=== PATIENT | male | born 1965 | race Caucasian/White ===

== ENCOUNTER 2017-06-22 10:17 | Emergency (ER) | payer MEDICARE ==
--- NOTE | 2017-06-22 10:30 | Emergency Department Record ---
History of Present Illness - General Chief Complaint: Shortness of breath Stated Complaint: SHORTNESS OF BREATH Time Seen by Provider: 06/22/17 10:29 Source: Patient Mode of Arrival: Ambulatory Limitations: No limitations - History of Present Illness Initial Comments: The patient is here due to a 2 month hx of intermittent SOB. It comes and goes and last minutes at a time. It is not related to exertion and he denies any cough, fever, chills, or sputum production. The patient describes it as feeling like he cannot take a full breath in. He also has had very mild intermittent chest discomfort not always with the SOB. The chest discomfort only lasts seconds to a minute and also does not come on with exertion. He denies any discomfort today. The patient did got the RC today but was sent to the ER for evaluation. The patient's only cardiac risk factors is a 30 pack year hx of tobacco use and he quit 3-4 years ago. The patient also has been having mild WILKERSON' s and lightheadedness for months although that is no different today. MD Complaint: Shortness of breath Onset/Timin -: Month(s) Radiation: Neck, Other Consistency: Intermittent Improves With: Nothing Worsens With: Nothing Associated Symptoms: Other Treatments Prior to Arrival: None - Related Data Home Oxygen Therapy: No Previous Rx's Medication Instructions Recorded Amoxicillin 500 mg PO TID #21 capsule 06/22/17 Allergies Allergy/AdvReac Type Severity Reaction Status Date / Time No Known Drug Allergies Allergy Verified 06/22/17 10:27 Travel Screening - Travel/Exposure Within Last 30 Days Have you traveled within the last 30 days?: No Review of Systems Constitutional: Denies: Chills, Fever Eyes: Denies: Eye discharge ENT: Denies: Congestion Respiratory: Reports: Dyspnea. Denies: Cough, Hemoptysis, Stridor, Wheezes Cardiovascular: Denies: Arrhythmia, Dyspnea on exertion Endocrine: Denies: Fatigue Gastrointestinal: Denies: Diarrhea, Nausea Genitourinary: Denies: Dysuria Musculoskeletal: Denies: Arthralgia Past Medical History - SOCIAL HISTORY Smoking Status: Former smoker Alcohol Use: None Drug Use: None - RESPIRATORY Hx Respiratory Disorders: No - CARDIOVASCULAR Hx Cardio Disorders: No - NEURO Hx Neuro Disorders: No - GI Hx GI Disorders: No - Hx Genitourinary Disorders: No - ENDOCRINE Hx Endocrine Disorders: No - MUSCULOSKELETAL Hx Musculoskeletal Disorders: No - PSYCH Hx Psych Problems: No - HEMATOLOGY/ONCOLOGY Hx Hematology/Oncology Disorders: No Family Medical History Any Significant Family History?: No Physical Exam - General General Appearance: Alert, Oriented x3, Cooperative, No acute distress - Head Head exam: Atraumatic, Normocephalic, Normal inspection - Eye Eye exam: Normal appearance, PERRL - Neck Neck exam: Normal inspection, Full ROM. negative: Tenderness - Respiratory Respiratory exam: Normal lung sounds bilaterally. negative: Chest wall tenderness, Rales, Respiratory distress, Rhonchi, Stridor, Wheezes - Cardiovascular Cardiovascular Exam: Regular rate, Normal rhythm, Normal heart sounds - GI/Abdominal GI/Abdominal exam: Soft, Normal bowel sounds. negative: Tenderness - Extremities Extremities exam: Normal inspection, Full ROM, Normal capillary refill. negative: Tenderness Course Vital Signs 06/22/17 10:20 Temperature 98.4 F Pulse Rate 70 Respiratory 18 Rate Blood Pressure 142/89 Pulse Ox 99 - Reevaluation(s) Reevaluation #1: The patient is doing very well at this time. He denies any pain, discomfort, SOB , dyspnea, dizziness or lightheadedness. He is up walking with no difficulty. He did show me a tooth issue he has been having as well which is causing him pain. He has a large chronic hole in his L lower 3rd molar that he believes he may be getting infected. I explained to him that I am not sure what is causing his issues but would like him to see a Drilling Rig Operator tomorrow and he agreed. We will set him up with an appointment with Dr. King in the [facility] for tomorrow. 06/22/17 11:50 Medical Decision Making - Data Complexity MDM Data: Labs Ordered and/or Reviewed, X-Ray Ordered and/or Reviewed, EKG Ordered and/or Reviewed - Lab Data Result diagrams: 06/22/17 10:20 06/22/17 10:20 - EKG Data -: EKG Interpreted by Me EKG: No Acute Changes, Normal EKG - Radiology Data Radiology results: Report reviewed (CXR: COPD per Rad.) Disposition Disposition: Discharge Clinical Impression: Dyspnea Qualifiers: Dyspnea type: unspecified Qualified Code(s): R06.00 - Dyspnea, unspecified Disposition: Home, Self-Care Condition: (1) Good Instructions: Dyspnea (ED) Additional Instructions: Please see Dr. King tomorrow at 10:30 in the [facility]. Return to the ER sooner for any chest pain, any significant trouble breathing or shortness of breath. Also make an appointment with your PCP due to the chronic headaches and lightheadedness that you have been experiencing for months. Also see your Dentist for your tooth issue. Prescriptions: Amoxicillin 500 mg PO TID #21 capsule Referrals: [facility] Special[facility] [Provider Group] Forms: Patient Portal Access Time of Disposition: 11:57 Quality - Quality Measures Quality Measures: N/A - Blood Pressure Screening View Details: Yes Blood Pressure Classification: Pre-Hypertensive BP Reading Systolic Measurement: 142 Diastolic Measurement: 89 Screening for High Blood Pressure: < Pre-Hypertensive BP, F/U Documented > [ [id number]] Pre-Hypertensive Follow-up Interventions: Follow-up with rescreen every year.
[2017-06-22 10:55] LABS: BASO % 0.4 % (0-6); EOS % 1.1 % (0-6); GRAN % 51.4 % (47-80); HEMATOCRIT 43.6 % (42.0-52.0); HEMOGLOBIN 14.5 gm/dl (14.0-18.0); LYMPH % 38.7 % (16-45); MEAN CELL VOLUME 89.9 fl (81-97); MEAN CORPUSCULAR HEMOGLOBIN 29.9 pg (27-33); MEAN CORPUSCULAR HGB CONC 33.3 g/dl (32-36); MEAN PLATELET VOLUME 10.7 fl (7.4-10.4); MONO % 8.4 % (0-9); PLATELET COUNT 279 K/uL (130-400); RED BLOOD COUNT 4.85 M/uL (4.40-5.70); RED CELL DISTRIBUTION WIDTH 12.9 % (11.5-14.5)
[2017-06-22 11:02] LABS: ALB/GLOB RATIO 1.6 (1.1-1.8); ALBUMIN 4.8 gm/dL (3.5-5.0); ALKALINE PHOSPHATASE 80 U/L (38-126); ALT/SGPT 44 U/L (21-72); ANION GAP 11.3 (7-16); AST/SGOT 25 U/L (17-59); BILIRUBIN,TOTAL 0.92 mg/dL (0.2-1.3); BLOOD UREA NITROGEN 11 mg/dL (9-20); CARBON DIOXIDE 23.7 mmol/L (22-30); CREATINE PHOSPHOKINASE 220 U/L (55-170); CREATININE 0.8 mg/dL (0.66-1.25); EST GLOMERULAR FILTRATION RATE > 60 ml/min; GLUCOSE,RANDOM 96 mg/dL (70-110); TOTAL PROTEIN 7.8 gm/dL (6.3-8.2)
[2017-06-22 11:14] LABS: CKMB 1.6 ug/L (0-6)
[2017-06-22 11:16] LABS: TROPONIN I < 0.012 ng/mL (0.00-0.034)
[2017-06-22 11:33] LABS: THYROID STIMULATING HORMONE 2.82 uIU/ml (0.465-4.68)
--- NOTE | 2017-06-23 08:08 | RADIOLOGY REPORT ---
EXAM: CHEST, TWO VIEWS HISTORY: INTERMITTENT DIZZINESS, BLURRED VISION, WEAKNESS, CHEST TIGHTNESS FOR A MONTHS, WORSE TODAY. DIFFICULTY IN BREATHING. TECHNIQUE: PA and lateral views of the chest were obtained. Comparison: None. FINDINGS: The heart size is normal. The lungs appear hyperinflated consistent with underlying COPD. There is some interstitial infiltrate in the right apical region which is likely some chronic fibrosis. Old films could confirm. Mild blunting of the costophrenic angles is probably just related to the hyperinflation. Allowing for this, no definite pleural effusion is seen and no pneumothorax evident. Some spurring in the spine. IMPRESSION: 1. THE LUNGS APPEAR HYPERINFLATED SUGGESTING COPD. 2. SOME INTERSTITIAL INFILTRATE RIGHT UPPER LUNG IS PRESUMABLY FIBROSIS. 3. SPURRING IN THE SPINE. JOB NUMBER: [id number] [facility]
== END 2017-06-22 12:05 | disposition home or self-care (01) ==
LOC: ER 10:17
DX: R06.00 Dyspnea, unspecified (principal); R07.89 Other chest pain; M54.2 Cervicalgia; J44.9 Chronic obstructive pulmonary disease, unspecified; R51 Headache; R42 Dizziness and giddiness; Z87.891 Personal history of nicotine dependence
CPT/HCPCS: 71020; 80048; 80053; 82550; 82553; 84443; 84484; 85025; 85379; 93005; 93010; 99284